=== PATIENT | male | born 1960 | race Hispanic/Latino ===

== ENCOUNTER 2025-01-09 12:56 | Outpatient (CLI) | payer OTHER | END 2025-01-09 12:57 | disposition home or self-care (01) | LOC: CSHWCC 12:56 | PROVIDERS: ATTEND Nurse Practitioner Family | DX: E11.621 Type 2 diabetes mellitus with foot ulcer (principal); L97.511 Non-pressure chronic ulcer of other part of right foot limited to breakdown of skin; M86.171 Other acute osteomyelitis, right ankle and foot; E11.65 Type 2 diabetes mellitus with hyperglycemia | CPT/HCPCS: 11042; G0463; 99213 ==

== ENCOUNTER 2025-01-16 14:26 | Outpatient (CLI) | payer OTHER | END 2025-01-16 14:27 | disposition home or self-care (01) | LOC: CSHWCC 14:26 | PROVIDERS: ATTEND Nurse Practitioner Family | DX: E11.621 Type 2 diabetes mellitus with foot ulcer (principal); L97.511 Non-pressure chronic ulcer of other part of right foot limited to breakdown of skin; E11.65 Type 2 diabetes mellitus with hyperglycemia; M86.171 Other acute osteomyelitis, right ankle and foot | CPT/HCPCS: 11042 ==

== ENCOUNTER 2025-01-30 12:49 | Outpatient (CLI) | payer OTHER | END 2025-01-30 12:50 | disposition home or self-care (01) | LOC: CSHWCC 12:49 | PROVIDERS: ATTEND Nurse Practitioner Family | DX: E11.621 Type 2 diabetes mellitus with foot ulcer (principal); L97.511 Non-pressure chronic ulcer of other part of right foot limited to breakdown of skin; M86.171 Other acute osteomyelitis, right ankle and foot; E11.65 Type 2 diabetes mellitus with hyperglycemia | CPT/HCPCS: 36416 ==

== ENCOUNTER 2025-02-13 12:35 | Outpatient (CLI) | payer OTHER | END 2025-02-13 12:36 | disposition home or self-care (01) | LOC: CSHWCC 12:35 | PROVIDERS: ATTEND Nurse Practitioner Family | DX: E11.621 Type 2 diabetes mellitus with foot ulcer (principal); L97.511 Non-pressure chronic ulcer of other part of right foot limited to breakdown of skin; M86.171 Other acute osteomyelitis, right ankle and foot; E11.65 Type 2 diabetes mellitus with hyperglycemia | CPT/HCPCS: 11042; G0463; 99213 ==

== ENCOUNTER 2025-02-27 13:36 | Outpatient (CLI) | payer OTHER | END 2025-02-27 13:37 | disposition home or self-care (01) | LOC: CSHWCC 13:36 | PROVIDERS: ATTEND Nurse Practitioner Family | DX: E11.621 Type 2 diabetes mellitus with foot ulcer (principal); L97.511 Non-pressure chronic ulcer of other part of right foot limited to breakdown of skin; E11.69 Type 2 diabetes mellitus with other specified complication; M86.171 Other acute osteomyelitis, right ankle and foot; E11.65 Type 2 diabetes mellitus with hyperglycemia | CPT/HCPCS: 11042 ==

== ENCOUNTER 2025-03-06 14:57 | Outpatient (CLI) | payer OTHER | END 2025-03-06 14:58 | disposition home or self-care (01) | LOC: CSHWCC 14:57 | PROVIDERS: ATTEND Nurse Practitioner Family | DX: E11.621 Type 2 diabetes mellitus with foot ulcer (principal); L97.511 Non-pressure chronic ulcer of other part of right foot limited to breakdown of skin; E11.69 Type 2 diabetes mellitus with other specified complication; M86.171 Other acute osteomyelitis, right ankle and foot; E11.65 Type 2 diabetes mellitus with hyperglycemia | CPT/HCPCS: 11042; G0463; 99213 ==

== ENCOUNTER 2025-03-20 14:48 | Outpatient (CLI) | payer OTHER | END 2025-03-20 14:49 | disposition home or self-care (01) | LOC: CSHWCC 14:48 | PROVIDERS: ATTEND Nurse Practitioner Family | DX: E11.621 Type 2 diabetes mellitus with foot ulcer (principal); L97.511 Non-pressure chronic ulcer of other part of right foot limited to breakdown of skin; E11.69 Type 2 diabetes mellitus with other specified complication; M86.171 Other acute osteomyelitis, right ankle and foot; E11.65 Type 2 diabetes mellitus with hyperglycemia | CPT/HCPCS: 11042 ==

== ENCOUNTER 2025-04-03 14:44 | Outpatient (CLI) | payer OTHER | END 2025-04-03 14:45 | disposition home or self-care (01) | LOC: CSHWCC 14:44 | PROVIDERS: ATTEND Nurse Practitioner Family | DX: E11.621 Type 2 diabetes mellitus with foot ulcer (principal); L97.511 Non-pressure chronic ulcer of other part of right foot limited to breakdown of skin; E11.69 Type 2 diabetes mellitus with other specified complication; M86.171 Other acute osteomyelitis, right ankle and foot; E11.65 Type 2 diabetes mellitus with hyperglycemia | CPT/HCPCS: 11042; G0463; 99213 ==